=== PATIENT | female | born 1960 | race Caucasian/White ===

== ENCOUNTER 2017-01-27 11:14 | Day surgery (SDC) | payer BC ==
[2017-01-26 12:31] VITALS: BMI 37.1
[2017-01-27] MEDS ORDERED: Propofol 200 MG/20 ML VIAL ONE (15:11)
--- NOTE | 2017-01-27 16:22 | OP ---
DATE OF SERVICE: 01/27/2017 PREOPERATIVE DIAGNOSES: 1. Iron deficiency anemia. 2. Hepatomegaly -- rule out varices. 3. Family history of colon polyps. PROCEDURE IN DETAIL: After informed consent was obtained, the patient was placed in the left lateral decubitus position. Anesthesia was administered per the Anesthesia Department. Forward-viewing end oscope was inserted into the esophagus under direct visualization with ease and passed to the second portion of the duodenum with ease. Second portion of the duodenum and duodenal bulb were normal. Bi opsies were taken from the second portion and first portion and duodenal bulb. There was some deform ity and irregularity of the duodenal bulb and pylorus consistent with prior peptic ulcer disease. Bi opsies of the antrum were taken as well. Retroflexion in the stomach was normal. The esophagus was normal throughout. No varices were noted. ASSESSMENT: 1. Pyloric and duodenal bulb deformity secondary to prior peptic ulcer disease - status post biopsy. 2. Otherwise normal esophagogastroduodenoscopy. RECOMMENDATIONS: 1. Await histopathology. 2. Begin iron replacement therapy. 3. Proceed with colonoscopy. PROCEDURE: After informed consent was obtained, the patient was placed in the left lateral decubitus position. Anesthesia was administered per the Anesthesia Department. Forward-viewing endoscope was inserted into the rectum after perianal inspection and rectal exam were normal except for large exte rnal hemorrhoids. The scope was passed to the cecum and into the ileum with ease. The ileum, ileoce edith valve, and appendiceal orifice were normal. The prep was excellent. The ascending, transverse, descending, sigmoid and rectum were normal. Retroflexion in the rectum was normal except for large i nternal hemorrhoids. ASSESSMENT: 1. Large internal hemorrhoids. 2. Large external hemorrhoids. 3. Otherwise normal ileal colonoscopy. RECOMMENDATION: 1. Iron replacement therapy. 2. Repeat colonoscopy in five years. 3. Slow gradual weight loss for patient's fatty liver.
== END 2017-01-27 15:43 | disposition home or self-care (01) ==
LOC: SDC 11:14
PROVIDERS: ATTEND Internal Medicine Gastroenterology
PROC: 0DJD8ZZ Inspection of Lower Intestinal Tract, Via Natural or Artificial Opening Endoscopic (ICD-10-PCS; principal; 2017-01-27)
PROC: 0DD98ZX Extraction of Duodenum, Via Natural or Artificial Opening Endoscopic, Diagnostic (ICD-10-PCS; principal; 2017-01-27)
PROC: 0DD78ZX Extraction of Stomach, Pylorus, Via Natural or Artificial Opening Endoscopic, Diagnostic (ICD-10-PCS; principal; 2017-01-27)
DX: Z12.11 Encounter for screening for malignant neoplasm of colon (principal); K31.9 Disease of stomach and duodenum, unspecified; D50.0 Iron deficiency anemia secondary to blood loss (chronic); K64.8 Other hemorrhoids; Z91.041 Radiographic dye allergy status; Z91.040 Latex allergy status; Z88.0 Allergy status to penicillin; Z91.048 Other nonmedicinal substance allergy status; Z83.71 Family history of colonic polyps
CPT/HCPCS: 88305; 88312; J2704

== ENCOUNTER 2017-03-09 16:18 | Inpatient (IN) | payer BC ==
[2017-03-09 17:15] LABS: #Basophils 0.1 thou/uL (0.0-0.2); #Eosinphils 0.1 thou/uL (0.0-0.7); #Lymphocytes 2.7 thou/uL (1.20-3.40); #Monocytes 0.8 thou/uL (0.11-0.59); %Basophils 2.6 % (0.0-1.0); %Eosinophils 1.9 % (0.0-10.0); %Lymphocytes 47.1 % (21.0-51.0); %Neutrophils 34.4 % (42.0-75.0); Mean Corpuscular HGB CONC 30.4 g/dL (32.0-36.0); Mean Corpuscular Hemoglobin 20.8 pg (27.0-31.0); Mean Corpuscular Volume 68.5 fl (81.0-99.0); Mean Platelet Volume 8.7 fL (7.4-10.4); Platelet Count 172 thou/uL (130-400); RBC Distribution Width 20.4 % (11.5-14.5); Red Blood Cell (RBC) Count 3.36 mill/uL (4.20-5.40); White Blood Cell (WBC) Count 5.7 thou/uL (4.8-10.8)
[2017-03-09 17:31] LABS: Anisocytosis MODERATE=16-30 cells (100X) (0-5/hpf); Elliptocytes SLIGHT = 2-5 cells (100X) (0-1/hpf); Hypochromia MODERATE=16-30 cells (100X) (0-5/hpf); MDiff Complete? YES; Microcytosis MODERATE=15-30 cells (100X) (0-5/hpf); Ovalocytes SLIGHT = 2-5 cells (100X) (0-1/hpf); PLT Morphology Comment Appears Adequate; Polychromasia SLIGHT = 2-3 cells (100X) (0-2/hpf); Reflex for Review?? YES; Schistocytes SLIGHT = 2-5 cells (100X) (0-1/hpf); Spherocytes SLIGHT = 1-5 cells (100X) (None Seen); Target Cells SLIGHT = 2-5 cells (100X) (0-1/hpf)
[2017-03-09 17:46] LABS: ALT (SGPT) 73 U/L (8-55); AST (SGOT) 121 U/L (5-34); Albumin 3.7 g/dL (3.5-5.0); Alkaline Phosphatase 92 U/L (40-150); Anion Gap 13 mmol/L (10-20); BUN (Urea Nitrogen) 18 mg/dL (9.8-20.1); Bilirubin, Total 0.5 mg/dL (0.2-1.2); CK (CPK) 76 U/L (29-168); Calc. Creatinine Clearance 0 mL/min (70-130); Carbon Dioxide 22 mmol/L (22-29); Chloride 102 mmol/L (98-107); Estimated GFR-MDRD 38; Glucose 126 mg/dL (70-105); Potassium 4.2 mmol/L (3.5-5.1); Protein, Total 7.7 g/dL (6.0-8.3); Sodium 133 mmol/L (136-145)
[2017-03-09 17:50] LABS: CKMB 0.9 ng/mL (0-6.6); Troponin I 0.015 ng/mL (< 0.028)
[2017-03-09 18:40] LABS: INR-International Normal Ratio 1.1; PTT 29.5 SEC (22.9-36.1)
--- NOTE | 2017-03-09 19:07 | RAD ---
PORTABLE CHEST 03/09/17 COMPARISON: 07/11/11 study. HISTORY: Low blood pressure, fever, cough and congestion. Heart size is within normal limits. An internal defibrillator device is present. The lungs are clear of infiltrates. No signs of failure. IMPRESSION: No active intrathoracic disease. POS: [facility]
[2017-03-09] MEDS ORDERED: Pantoprazole 40 MG VIAL ONE (19:39)
[2017-03-10 04:40] LABS: Hemoglobin 7.8 g/dL (12.0-16.0)
[2017-03-10 05:00] VITALS: BP 119/59; TEMP 98.1; BMI 38.9
[2017-03-10] MEDS ORDERED: Ondansetron ODT 4 MG TAB SL PRN (05:02)
[2017-03-10] MEDS ORDERED: Ondansetron HCl/PF 4 MG/2 ML Vial IVP PRN (05:02)
[2017-03-10 06:01] LABS: Platelet Count 129 thou/uL (130-400)
[2017-03-10] MEDS ORDERED: Pantoprazole 40 MG VIAL IVP SCH (09:00)
--- NOTE | 2017-03-10 12:43 | SS ---
CHIEF COMPLAINT: Lower GI bleed - symptomatic. HISTORY OF PRESENT ILLNESS: The patient is a 56-year-old female who has a history of GI bleed that w as investigated by colonoscopy per Dr. Raines in 01/2017, she was found to have bleeding internal hemor rhoids. The patient has been taking regularly to combat this. She has refused therapeutic surgical correction. Finally in 3 days prior to this admission, the patient contracted a viral gastroenteriti s with nausea, vomiting, and diarrhea. This combined with the gastrointestinal bleed and caused her to be lightheaded, extremely weak. On arrival in the emergency room, hemoglobin was 7, hematocrit 23 and she was resuscitated with IV fluids and 1 unit of packed RBCs. She was watched overnight in the hospital and on the day of discharge 03/10/2017, she refused to stay in the hospital. She said she felt much better without consider having surgical correction of these hemorrhoids at this time. She is no longer experiencing nausea or having vomiting or diarrhea and refused to stay in hospital for f urther care or surgical correction. PAST MEDICAL HISTORY: Significant for type 2 diabetes, congestive heart failure, hyperthyroidism, hy perlipidemia, depression, GERD, hyperuricemia, migraine headaches, attention deficit disorder and gen eral medical noncompliance. PAST SURGICAL HISTORY: Includes renal tumor removal, partial ovarian removal, partial liver removal, appendectomy, cholecystectomy, hysterectomy, tonsillectomy. PAST PSYCHIATRIC HISTORY: Includes anxiety and depression. SOCIAL HISTORY: Denies alcohol use or drug use. No smoking. ALLERGIES: To ALCOHOL, DEMEROL, IODIDES, LATEX GLOVES and PENICILLINS. MEDICATIONS ON ADMISSION: Include Zoloft 100 mg daily, Zocor 40 mg at bedtime, Trilipix 135 mg at be dtime, [place] thyroid 30 mcg p.o. q.a.m., levothyroxine 175 mcg p.o. daily, Lanoxin 125 mcg daily, Si ngulair 10 mg daily, Nexium 40 mg daily, Xyzal 5 mg daily, lisinopril 20 mg daily, Lasix 40 mg daily, Zyloprim 300 mg daily, metformin 1000 mg b.i.d., Topamax 50 mg b.i.d., Adderall 20 mg b.i.d., Coreg 6.25 mg b.i.d. She takes NovoLog 60 units in the morning and 40 units in the evening, and Levemir 70 units subcutaneous daily. She also takes Novolin R sliding scale p.r.n. through the day up to 4 jono es. REVIEW OF SYSTEMS: General: The patient is no longer weak, lethargic, no fevers, no chills at this time. HEENT: No photophobia, discharge or eye pain. No headaches. Chest: Denies shortness of bao ath, coughing, dyspnea. Cardiovascular: Denies chest pain or palpitations. Abdomen: No longer has nausea or pain. Genitourinary: No longer has diarrhea, blood in stool. No painful urination. Mus culoskeletal: Denies joint pain or myalgias at this time. Skin: No rashes or lesions. Neurologic: No trouble with mentation, weakness or foggy headedness. Hematological: No abnormal bruising or s welling at this time. PHYSICAL EXAMINATION: VITAL SIGNS: Have improved from admission. Initially, her blood pressure was 100/54, now her blood pressure is 131/54. GENERAL: A well-developed, well-nourished, female, alert, oriented, cooperative. HEENT: Normocephalic and atraumatic. Pupils equal, round, and reactive to light. Extraocular muscl es are intact. TMs, nares, pharynx, moist and clear. NECK: Supple. CHEST: Clear to auscultation. BREAST: Deferred. HEART: Regular rate and rhythm, no murmur. ABDOMEN: Soft, nontender, without organomegaly. GENITOURINARY: Deferred. EXTREMITIES: Without clubbing, cyanosis, or edema. Normal range of motion present. SKIN: Pale with normal turgor. NEUROLOGIC: Cranial nerves are intact. Mental status clear. Unable to test gait and cerebellar fun ction at this time. Sensory exam is intact. Mental status is at baseline. LABORATORY DATA: Lab work on admission showed WBC 5.7, hemoglobin initially was 7 and after transfus ion went to 7.8, hematocrit initially was 23 and after transfusion went to 24.5 with platelets at 129 . Sodium is 133, potassium 4.2, chloride 102, CO2 22, BUN 18, creatinine 1.44, glucose 126. AST theodora vated at 121, ALT elevated at 73. Lipase 45. ASSESSMENT: 1. Lower gastrointestinal bleed due to internal hemorrhoids - symptomatic. 2. Viral gastroenteritis. 3. Dehydration. 4. Insulin-dependent diabetes mellitus. PLAN: The patient refuses further hospitalization or consultation for correction of her internal hem orrhoids. She absolutely refuses a surgical option at this time and symptomatically feels much obed r after IV fluids and 1 unit of packed red blood cells. She is no longer bleeding, vomiting or havin g diarrhea and assist on discharge home. She is discharged in weak, but in stable condition and will follow up with Dr. Talley in 2-3 weeks for reassessment of blood count and hopefully consultation for surgical correction of internal hemorrhoids at that time. The time necessary to counselor camp the patient who refused further care, prepare of discharge paperwork came to 35 minutes.
--- NOTE | 2017-03-13 12:08 | EKG ---
Test Reason : DIZZINESS Blood Pressure : / mmHG Vent. Rate : 074 BPM Atrial Rate : 074 BPM P-R Int : 106 ms QRS Dur : 088 ms QT Int : 450 ms P-R-T Axes : 043 032 108 degrees QTc Int : 499 ms Sinus rhythm with short AR Prolonged QT Abnormal ECG Confirmed by JOSE RAFAEL GIBBS, JAIME ([id number]), proposal editor SHORTY CASTANO ([id number]) on 03/13/2017 12:08:06 PM Referred By: Confirmed By:JAIME MANTILLA MD
== END 2017-03-10 08:55 | disposition home or self-care (01) | DRG 395 ==
LOC: ERS 16:18 → ERHOLD 23:16 → 2NO 03-10 04:36
PROVIDERS: ADMIT Specialist; ATTEND Specialist
PROC: 30233N1 Transfusion of Nonautologous Red Blood Cells into Peripheral Vein, Percutaneous Approach (ICD-10-PCS; principal; 2017-03-09)
DX: K64.8 Other hemorrhoids (principal); I50.9 Heart failure, unspecified; A08.4 Viral intestinal infection, unspecified; E86.0 Dehydration; E11.9 Type 2 diabetes mellitus without complications; Z79.4 Long term (current) use of insulin; K21.9 Gastro-esophageal reflux disease without esophagitis; E78.5 Hyperlipidemia, unspecified; Z79.84 Long term (current) use of oral hypoglycemic drugs
CPT/HCPCS: 36415; 36430; 71045; 80053; 82553; 83690; 83880; 84484; 85014; 85018; 85025; 85049; 85060; 85610; 85730; 86850; 86900; 86901; 93005; 94760; 96374; C9113; P9016

== ENCOUNTER 2017-04-19 15:27 | Outpatient (CLI) | payer BC ==
[2017-04-19 17:40] LABS: ALT (SGPT) 46 U/L (8-55); AST (SGOT) 57 U/L (5-34); Alkaline Phosphatase 108 U/L (40-150); Anion Gap 12 mmol/L (10-20); BUN (Urea Nitrogen) 21 mg/dL (9.8-20.1); Bilirubin, Total 0.4 mg/dL (0.2-1.2); Calc. Creatinine Clearance 0 mL/min (70-130); Calcium 9.4 mg/dL (7.8-10.44); Carbon Dioxide 22 mmol/L (22-29); Chloride 102 mmol/L (98-107); Estimated GFR-MDRD 54; Globulin 3.8 g/dL (2.4-3.5); Glucose 223 mg/dL (70-105); Potassium 3.9 mmol/L (3.5-5.1); Protein, Total 7.8 g/dL (6.0-8.3); Sodium 132 mmol/L (136-145)
[2017-04-19 17:43] LABS: #Basophils 0.2 thou/uL (0.0-0.2); #Eosinphils 0.1 thou/uL (0.0-0.7); #Lymphocytes 3.1 thou/uL (1.20-3.40); #Monocytes 0.5 thou/uL (0.11-0.59); #Neutrophils 2.4 thou/uL (1.40-6.50); %Basophils 2.5 % (0.0-1.0); %Eosinophils 2.1 % (0.0-10.0); %Lymphocytes 49.1 % (21.0-51.0); %Monocytes 7.4 % (0.0-10.0); %Neutrophils 38.8 % (42.0-75.0); Anisocytosis MODERATE=16-30 cells (100X) (0-5/hpf); Elliptocytes SLIGHT = 2-5 cells (100X) (0-1/hpf); Hemoglobin 8.7 g/dL (12.0-16.0); Hypochromia MODERATE=16-30 cells (100X) (0-5/hpf); Large Platelets SLIGHT; MDiff Complete? YES; Mean Corpuscular HGB CONC 31.2 g/dL (32.0-36.0); Mean Corpuscular Hemoglobin 22.3 pg (27.0-31.0); Mean Corpuscular Volume 71.4 fl (81.0-99.0); Mean Platelet Volume 8.4 fL (7.4-10.4); Microcytosis SLIGHT = 6-15 cells (100X) (0-5/hpf); Ovalocytes SLIGHT = 2-5 cells (100X) (0-1/hpf); PLT Morphology Comment Appears Decreased; Platelet Count 128 thou/uL (130-400); Poikilocytosis SLIGHT = 6-15 cells (100X) (0-5/hpf); Polychromasia SLIGHT = 2-3 cells (100X) (0-2/hpf); RBC Distribution Width 21.5 % (11.5-14.5); Red Blood Cell (RBC) Count 3.89 mill/uL (4.20-5.40); Tear Drops SLIGHT = 2-5 cells (100X) (0-1/hpf); White Blood Cell (WBC) Count 6.3 thou/uL (4.8-10.8)
--- NOTE | 2017-04-27 19:50 | EKG ---
Test Reason : Blood Pressure : / mmHG Vent. Rate : 065 BPM Atrial Rate : 065 BPM P-R Int : 164 ms QRS Dur : 100 ms QT Int : 418 ms P-R-T Axes : 069 052 -08 degrees QTc Int : 434 ms Normal sinus rhythm Abnormal ECG When compared with ECG of 09-MAR-2017 16:41, Nonspecific T wave abnormality, worse in Inferior leads QT has shortened Confirmed by ASIA HERNANDEZ ([id number]) on 04/27/2017 7:50:20 PM Referred By: REGINE Confirmed By:ASIA HERNANDEZ
== END 2017-04-19 15:28 | disposition home or self-care (01) ==
LOC: LABBT 15:27
PROVIDERS: ATTEND Surgery
DX: Z01.812 Encounter for preprocedural laboratory examination (principal); Z01.818 Encounter for other preprocedural examination; K64.9 Unspecified hemorrhoids
CPT/HCPCS: 80053; 85025; 93005; 93010

== ENCOUNTER → 2017-04-23 | Day surgery (SDC) | payer BC ==
[2017-04-19 15:56] VITALS: BMI 35.9
[~2017-04-23] MED LIST: Bacitracin Zinc Ointment 30 gm TUBE ONE; Bupivacaine/Epinephrine 0.25% 30 ML VIAL ONE; Fentanyl 250 MCG/5 ML VIAL ONE; Glycopyrrolate 0.2 MG/ML 5 ML SYRINGE ONE; HYDROcodone/Acetaminophen 5/325 mg Tablet ONE; Insulin Regular 300 UNITS/3 ML VIAL ONE; Levofloxacin 500 mg/D5W 100 ml Premix Bag ONE; Lidocaine 1% PF 5 ML VIAL ONE; Midazolam HCl 2 mg/2 ml Vial ONE; Ondansetron HCl/PF 4 MG/2 ML Vial ONE; Propofol 1,000 MG/100 ML VIAL IV ONE; Propofol 200 MG/20 ML VIAL ONE; SUGAMMADEX SODIUM 200 MG/2 ML VIAL ONE
--- NOTE | 2017-04-23 11:17 | OP ---
PREOPERATIVE DIAGNOSIS: Grade III bleeding hemorrhoids. SURGEON: Irvin Sexton M.D. PROCEDURE: PPH staple hemorrhoidectomy. INDICATIONS: A 56-year-old female, who has prolapsing bleeding hemorrhoids. FINDINGS: Grade III hemorrhoids. PROCEDURE IN DETAIL: After informed consent was obtained, the patient was taken to the operating bin m, given general endotracheal anesthesia. She was placed in the prone jackknife position. Perianal region was prepped and draped in usual fashion. Local anesthesia infiltrated subcutaneously and deep as a four quadrant anal block. The anal retractor was inserted to reduce the hemorrhoids and was he ld in place with interrupted 0 silk sutures circumferentially. Then suture guide inserted and a purs estring of 2-0 Prolene placed circumferentially in the rectal mucosa. The stapler was then introduce d with the anvil fully extended beyond the purse-string. The strings were then brought through the c hannels on the stapler utilizing the tami hook. This tied as a knot and held tight against the sh aft of the stapler as it was closed. Then the stapler was fired and held for 30 seconds, released fo r 30 seconds, and removed. The specimen inspected. There was no muscle fibers, sent to pathology fo r further analysis. There was one area anterior that required a 3-0 chromic suture at the staple esme e to control bleeding. Hemostasis was assured. The area was irrigated. Gelfoam was then inserted w ithin the anal canal and a sterile bandage. The patient tolerated the procedure well and was transfe rred to recovery in good condition. Sponge and needle count verified correct x2.
== END ==
LOC: SDC 05:32
PROVIDERS: ATTEND Surgery
PROC: 06LY0ZC Occlusion of Hemorrhoidal Plexus, Open Approach (ICD-10-PCS; principal; 2017-04-23)
DX: K64.2 Third degree hemorrhoids (principal); I25.2 Old myocardial infarction; D64.9 Anemia, unspecified; J45.909 Unspecified asthma, uncomplicated; E11.9 Type 2 diabetes mellitus without complications; K74.60 Unspecified cirrhosis of liver; I11.0 Hypertensive heart disease with heart failure; I50.9 Heart failure, unspecified; E03.9 Hypothyroidism, unspecified; K21.9 Gastro-esophageal reflux disease without esophagitis; M06.9 Rheumatoid arthritis, unspecified; G40.909 Epilepsy, unspecified, not intractable, without status epilepticus; Z79.4 Long term (current) use of insulin; Z79.899 Other long term (current) drug therapy; Z88.0 Allergy status to penicillin; Z88.5 Allergy status to narcotic agent; Z91.012 Allergy to eggs; Z91.041 Radiographic dye allergy status; Z91.040 Latex allergy status; Z88.8 Allergy status to other drugs, medicaments and biological substances; Z98.890 Other specified postprocedural states
CPT/HCPCS: 36416; 88304; J1815; J1956; J2001; J2250; J2405; J2704; J3010

== ENCOUNTER 2017-05-24 05:42 | Day surgery (SDC) | payer BC ==
[2017-05-24 06:39] LABS: Hemoglobin 8.7 g/dL (12.0-16.0); INR-International Normal Ratio 1.2; Mean Corpuscular Hemoglobin 20.3 pg (27.0-31.0); Mean Corpuscular Volume 65.6 fl (81.0-99.0); Mean Platelet Volume 7.1 fL (7.4-10.4); PTT 32.3 SEC (22.9-36.1); Platelet Count 119 thou/uL (130-400); RBC Distribution Width 20.3 % (11.5-14.5); Red Blood Cell (RBC) Count 4.27 mill/uL (4.20-5.40); White Blood Cell (WBC) Count 6.2 thou/uL (4.8-10.8)
[2017-05-24 06:55] LABS: Anion Gap 13 mmol/L (10-20); BUN (Urea Nitrogen) 14 mg/dL (9.8-20.1); Calc. Creatinine Clearance 0 mL/min (70-130); Carbon Dioxide 23 mmol/L (22-29); Chloride 107 mmol/L (98-107); Estimated GFR-MDRD 58; Glucose 146 mg/dL (70-105); Sodium 139 mmol/L (136-145)
[2017-05-24] MEDS ORDERED: Lidocaine 1% (PF) 30 ML VIAL ONE (07:00)
[2017-05-24] MEDS ORDERED: Propofol 1,000 MG/100 ML VIAL IV ONE (07:14)
[2017-05-24] MEDS ORDERED: Phenylephrine HCL 10 MG/ML VIAL ONE (07:14)
[2017-05-24] MEDS ORDERED: Levofloxacin 500 mg/D5W 100 ml Premix Bag ONE (07:38)
[2017-05-24] MEDS ORDERED: Clindamycin/D5W 900 mg/50 ml Premix Bag ONE (07:40)
[2017-05-24] MEDS ORDERED: Lidocaine 2% Jelly 5 ML TUBE ONE (08:04)
[2017-05-24] MEDS ORDERED: Propofol 500 MG/50 ML VIAL ONE (08:26)
[2017-05-24] MEDS ORDERED: PROPOFOL 200 MG/20 ML VIAL ONE (16:11)
== END 2017-05-24 10:01 | disposition home or self-care (01) ==
LOC: EEVIPCON 05:42 → CCL 05:42
PROVIDERS: ATTEND Internal Medicine Cardiovascular Disease
PROC: 02HK3KZ Insertion of Defibrillator Lead into Right Ventricle, Percutaneous Approach (ICD-10-PCS; principal; 2017-05-24)
PROC: 02H63KZ Insertion of Defibrillator Lead into Right Atrium, Percutaneous Approach (ICD-10-PCS; principal; 2017-05-24)
PROC: 0JPT0PZ Removal of Cardiac Rhythm Related Device from Trunk Subcutaneous Tissue and Fascia, Open Approach (ICD-10-PCS; principal; 2017-05-24)
PROC: 0JH608Z Insertion of Defibrillator Generator into Chest Subcutaneous Tissue and Fascia, Open Approach (ICD-10-PCS; principal; 2017-05-24)
PROC: 02PA0MZ Removal of Cardiac Lead from Heart, Open Approach (ICD-10-PCS; principal; 2017-05-24)
DX: Z45.02 Encounter for adjustment and management of automatic implantable cardiac defibrillator (principal); I47.2 Ventricular tachycardia; I11.0 Hypertensive heart disease with heart failure; I50.42 Chronic combined systolic (congestive) and diastolic (congestive) heart failure; J45.909 Unspecified asthma, uncomplicated; E11.9 Type 2 diabetes mellitus without complications; E66.9 Obesity, unspecified; I42.0 Dilated cardiomyopathy; I25.2 Old myocardial infarction; E03.9 Hypothyroidism, unspecified; K21.9 Gastro-esophageal reflux disease without esophagitis; K75.9 Inflammatory liver disease, unspecified; M06.9 Rheumatoid arthritis, unspecified; G40.909 Epilepsy, unspecified, not intractable, without status epilepticus; Z68.35 Body mass index [BMI] 35.0-35.9, adult; Z79.2 Long term (current) use of antibiotics; Z79.4 Long term (current) use of insulin; Z79.899 Other long term (current) drug therapy; Z91.041 Radiographic dye allergy status; Z88.5 Allergy status to narcotic agent; Z88.0 Allergy status to penicillin; Z88.8 Allergy status to other drugs, medicaments and biological substances; Z91.018 Allergy to other foods; Z91.040 Latex allergy status; Z98.890 Other specified postprocedural states
CPT/HCPCS: 33263; 80048; 85027; 85610; 85730; C1721; J1956; J2001; J2370; J2704; J3490

== ENCOUNTER 2018-08-01 08:04 | Outpatient (CLI) | payer BC ==
--- NOTE | 2018-08-01 08:19 | RAD ---
EXAM: Two views chest PROVIDED CLINICAL HISTORY: Ventricular tachycardia. Chronic systolic heart failure. COMPARISON: 03/09/2017 FINDINGS: Dual lead left subclavian AICD device remains in place. Cardiac silhouette and pulmonary vasculature are within normal limits. The lungs are clear. The osseous structures have a normal appearance. Vascular calcifications are seen in the thoracic aorta. Chest is stable compared to prior exam. IMPRESSION: No acute cardiopulmonary process.
== END 2018-08-01 08:05 | disposition home or self-care (01) ==
LOC: BICRAD 08:04
PROVIDERS: ATTEND Internal Medicine Cardiovascular Disease
DX: I47.2 Ventricular tachycardia (principal); I50.22 Chronic systolic (congestive) heart failure
CPT/HCPCS: 71046